=== PATIENT | male | born 1985 ===

== ENCOUNTER 2020-06-22 11:18 | Emergency (ER) | payer OTHER ==
[~2020-06-22] VITALS: Ht 180.3 cm; Wt 73.9 kg
[2020-06-22] MEDS ORDERED: SYNTHROID50 MCG (13:09)
== END 2020-06-22 15:14 | disposition home or self-care (01) ==
LOC: ER 11:18
DX: S13.4XXA Sprain of ligaments of cervical spine, initial encounter (principal); S33.9XXA Sprain of unspecified parts of lumbar spine and pelvis, initial encounter; S23.3XXA Sprain of ligaments of thoracic spine, initial encounter; V49.88XA Car occupant (driver) (passenger) injured in other specified transport accidents, initial encounter; Y93.89 Activity, other specified; Y92.488 Other paved roadways as the place of occurrence of the external cause; Y99.8 Other external cause status